=== PATIENT | male | born 1985 | race Caucasian/White ===

== ENCOUNTER 2024-10-28 15:34 | Emergency (ER) | payer OTHER ==
[~2024-10-28] VITALS: Ht 180.3 cm; Wt 100.0 kg
[2024-10-28 15:40] VITALS: O2SAT 100
[2024-10-28 15:41] VITALS: BP 135/77; PULSE 64; RESP 18; TEMP 36.7; O2SAT 98
[2024-10-28] MEDS: IBUPROFEN 400MG TABLET PO ONE (16:03)
== END 2024-10-28 16:52 | disposition home or self-care (01) ==
LOC: ER 16:06
DX: S46.211A Strain of muscle, fascia and tendon of other parts of biceps, right arm, initial encounter (principal); E03.9 Hypothyroidism, unspecified; Z98.890 Other specified postprocedural states; X58.XXXA Exposure to other specified factors, initial encounter; Y93.B2 Activity, push-ups, pull-ups, sit-ups; Y92.89 Other specified places as the place of occurrence of the external cause; Y99.8 Other external cause status
CPT/HCPCS: 29105; 73090; 99283